=== PATIENT | female | born 1985 | race Hispanic/Latino ===

== ENCOUNTER 2022-11-09 09:37 | Observation (INO) | payer OTHER ==
[~2022-11-09] VITALS: Ht 154.9 cm; Wt 86.7 kg
[2022-11-09 09:42] VITALS: BP 152/86
[2022-11-09 10:23] LABS: APPEARANCE,URINE CLEAR (CLEAR); BILIRUBIN,URINE NEGATIVE (NEGATIVE); COLOR,URINE LIGHT-YELLOW (YELLOW); GLUCOSE, URINE (UA) NEGATIVE (NEGATIVE); KETONES,URINE NEGATIVE (NEGATIVE); LEUKOCYTE ESTERASE ,URINE NEGATIVE Leu/uL (NEGATIVE); NITRATE,URINE NEGATIVE (NEGATIVE); OCCULT BLOOD,URINE NEGATIVE (NEGATIVE); PROTEIN,URINE NEGATIVE (NEGATIVE); UROBILINOGEN,URINE 0.2 mg/dL (0.2-1.0)
[2022-11-09] MEDS ORDERED: TERBUTALINE SULFATE VIAL 1MG/ML SQ SCH (11:00)
[2022-11-09] MEDS ORDERED: LACTATED RINGERS 1000ML 1,000 ML IV SCH (11:00)
[2022-11-09] MEDS ORDERED: PHENYLEPHRINE HCL 10 MG/ML 1ML VIAL IV ONE ×2 (11:12→11:13)
[2022-11-09] MEDS ORDERED: OXYTOCIN 10 USP UNITS/ML ONE (11:12)
[2022-11-09 13:56] LABS: AMPHET/METH SCREEN,URINE NEGATIVE (NEGATIVE); BARBITURATE SCREEN, URINE NEGATIVE (NEGATIVE); BENZODIAZEPINES SCREEN,URINE NEGATIVE (NEGATIVE); CANNABINOID SCREEN,URINE NEGATIVE (NEGATIVE); COCAINE SCREEN,URINE NEGATIVE (NEGATIVE); OPIATE SCREEN,URINE NEGATIVE (NEGATIVE); PHENCYCLIDINE SCREEN,URINE NEGATIVE (NEGATIVE)
== END 2022-11-09 12:50 | disposition home or self-care (01) ==
LOC: EDH 09:37 → LDH 09:38
PROVIDERS: ADMIT Obstetrics & Gynecology; ATTEND Obstetrics & Gynecology
DX: Z34.83 Encounter for supervision of other normal pregnancy, third trimester (principal); Z3A.39 39 weeks gestation of pregnancy
CPT/HCPCS: 96360; 96361; 80305; 81003; 76805; G0378 ×3; G0379; J7120 ×2; J3105; J2590; J2370 ×2

== ENCOUNTER 2022-11-12 09:10 | Inpatient (IN) | payer OTHER ==
[~2022-11-12] VITALS: Ht 167.6 cm; Wt 90.5 kg
[2022-11-12] MEDS: LACTATED RINGERS 1000ML 1,000 ML IV PRN ×2 (10:06→16:18)
[2022-11-12 10:18] LABS: MEAN CORPUSCULAR HEMOGLOBIN 29.1 pg (27.0-33.0); MEAN CORPUSCULAR HGB CONC 33.2 g/dL (32.0-36.0); MEAN CORPUSCULAR VOLUME 87.6 fL (79-99); RED BLOOD CELL COUNT(AUTO) 4.68 MIL/uL (4.00-5.50); RED CELL DISTRIBUTION WIDTH 13.5 % (11.0-15.5); WHITE BLOOD COUNT (AUTO) 13.9 K/uL (4.8-10.8)
[2022-11-12] MEDS ORDERED: CALDOLOR 800MG+NS 250ML 250 ML IV PRN (10:30)
[2022-11-12] MEDS ORDERED: CEFAZOLIN SODIUM 2 GM VIAL IVP PRN (10:30)
[2022-11-12] MEDS ORDERED: CEFAZOLIN SODIUM 1 GM VIAL ONE (10:33)
[2022-11-12] MEDS ORDERED: OXYTOCIN-LR 20 UNITS/1000 ML 1,000 ML IV ONE (10:46)
[2022-11-12] MEDS ORDERED: LIDOCAINE HCL 1% 20 ML VIAL ONE (10:57)
[2022-11-12] MEDS ORDERED: ACETAMINOPHEN 325 MG TAB PO PRN (11:30)
[2022-11-12] MEDS ORDERED: WITCH HAZEL 1 PAD TP PRN (11:30)
[2022-11-12] MEDS ORDERED: ACETAMINOPHEN WITH CODEINE 1 TAB TAB PO PRN (11:30)
[2022-11-12] MEDS ORDERED: DIPH,PERTUSS(ACELL),TET VAC/PF 0.5 ML VIAL IM PRN (11:30)
[2022-11-12] MEDS ORDERED: MEASLES/MUMPS/RUBELLA VACCINE, LIVE 0.5 ML/VIAL SQ PRN (11:30)
[2022-11-12] MEDS ORDERED: LANOLIN 30GM OINTMENT TP PRN (11:30)
[2022-11-12] MEDS ORDERED: BENZOCAINE/LANOLIN/ALOE VERA 60 ML AEROSOL TP PRN (11:30)
[2022-11-12] MEDS ORDERED: IBUPROFEN 600 MG TABLET PO PRN (11:30)
[2022-11-12] MEDS ORDERED: OXYTOCIN-LR 20 UNITS/1000 ML 1,000 ML IV SCH (11:30)
[2022-11-12 11:35] LABS: AMPHET/METH SCREEN,URINE NEGATIVE (NEGATIVE); BARBITURATE SCREEN, URINE NEGATIVE (NEGATIVE); BENZODIAZEPINES SCREEN,URINE NEGATIVE (NEGATIVE); CANNABINOID SCREEN,URINE NEGATIVE (NEGATIVE); COCAINE SCREEN,URINE NEGATIVE (NEGATIVE); OPIATE SCREEN,URINE NEGATIVE (NEGATIVE); PHENCYCLIDINE SCREEN,URINE NEGATIVE (NEGATIVE)
[2022-11-12 12:12] LABS: RAPID PLASMA REAGIN NONREACTIVE (NONREACTIVE)
[2022-11-12 14:15] VITALS: BP 125/75
[2022-11-12] MEDS ORDERED: PREN-226 PO (15:39)
[2022-11-12 16:23] VITALS: BP 121/69
[2022-11-12 19:34] VITALS: BP 124/72
[2022-11-12] MEDS: DOCUSATE SODIUM 100 MG CAP PO SCH (21:00)
[2022-11-12 23:16] VITALS: BP 117/74
[2022-11-13 03:51] VITALS: BP 118/62
[2022-11-13 06:30] LABS: HEMATOCRIT 29.7 % (36-48); MEAN CORPUSCULAR HEMOGLOBIN 29.4 pg (27.0-33.0); MEAN CORPUSCULAR VOLUME 86.6 fL (79-99); RED BLOOD CELL COUNT(AUTO) 3.43 MIL/uL (4.00-5.50); RED CELL DISTRIBUTION WIDTH 13.5 % (11.0-15.5); WHITE BLOOD COUNT (AUTO) 12.3 K/uL (4.8-10.8)
[2022-11-13 07:27] VITALS: BP 119/68
[2022-11-13] MEDS: DOCUSATE SODIUM 100 MG CAP PO SCH (09:13)
[2022-11-13 12:05] VITALS: BP 106/67
[2022-11-13] MEDS ORDERED: DOCU-116 PO (13:22)
[2022-11-13] MEDS ORDERED: IBUP-2077 PO (13:22)
[2022-11-13 16:29] VITALS: BP 115/73
== END 2022-11-13 19:00 | disposition home or self-care (01) | DRG 807 ==
LOC: EDH 09:10 → LDH 09:11 → OBSVTOIN 09:11 → WSH 14:05
PROVIDERS: ADMIT Obstetrics & Gynecology; ATTEND Obstetrics & Gynecology
PROC: 10E0XZZ Delivery of Products of Conception, External Approach (ICD-10-PCS; principal; 2022-11-12)
PROC: 0HQ9XZZ Repair Perineum Skin, External Approach (ICD-10-PCS; 2022-11-12)
DX: O70.0 First degree perineal laceration during delivery (principal); Z37.0 Single live birth; Z3A.39 39 weeks gestation of pregnancy
CPT/HCPCS: 36415; 80305; 85027; 86592; 86701; 86850; 86900; 86901; 87340; 87390; A4351; G0378; J0690; J1741; J2590; J7120